=== PATIENT | female | born 2000 | race Caucasian/White ===

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

== ENCOUNTER 2021-05-02 07:24 | Outpatient (CLI) ==
[~2021-05-02] VITALS: Ht 170.2 cm; Wt 86.5 kg
[~2021-05-02 07:24] MED LIST: PRENTAB9 PO
[2021-05-02 07:49] VITALS: BP 99/62
[2021-05-02] MEDS ORDERED: HOME MED LIST COMPLETE! XX SCH (07:50)
== END 2021-05-02 09:05 | disposition home or self-care (01) ==
LOC: M LDO 07:24
PROVIDERS: ATTEND Registered Nurse
DX: O36.8120 Decreased fetal movements, second trimester, not applicable or unspecified (principal); Z3A.27 27 weeks gestation of pregnancy; O47.02 False labor before 37 completed weeks of gestation, second trimester
CPT/HCPCS: 59025; G0378; G0463

== ENCOUNTER 2021-08-05 05:33 | Inpatient (IN) | payer OTHER ==
[~2021-08-05] VITALS: Ht 170.2 cm; Wt 98.6 kg
[2021-08-05] VITALS (8 sets, daily range): BP systolic 118–147; BP diastolic 58–93
[2021-08-05] MEDS ORDERED: HOME MED LIST COMPLETE! XX SCH (06:15)
[2021-08-05] MEDS ORDERED: LACTATED RINGER'S 1000 ML IV STA (06:28)
[2021-08-05] MEDS ORDERED: PENICILLIN G POTASSIUM IV 5 MU in D5W MINI-BAG PLUS 100 ML IV STA (06:28)
[2021-08-05] MEDS ORDERED: LR 1,000 ML IV SCH ×2 (06:30→08:55)
[2021-08-05] MEDS ORDERED: LIDOCAINE 1% MDV 20ML VIAL INFIL PRN (06:30)
[2021-08-05] MEDS ORDERED: OXYTOCIN INJ 10 UNITS/ML VIAL (J2590) IV PRN (06:30)
[2021-08-05] MEDS ORDERED: TRANEXAMIC ACID INJection 1,000 MG in NS 100 ML IV PRN (06:30)
[2021-08-05] MEDS ORDERED: OXYTOCIN DRIP 30 UNITS in IV 1 EA IV PRN ×4 (06:30)
[2021-08-05] MEDS ORDERED: METHYLERGONOVINE MALEATE 0.2 MG/ML VIAL (J2210) IM PRN (06:30)
[2021-08-05] MEDS ORDERED: CARBOPROST TROMETHAMINE 250 MCG/ML AMP IM PRN (06:30)
[2021-08-05 06:50] LABS: HEMATOCRIT 35.6 % (36.0-47.0); HEMOGLOBIN 12.2 g/dl (12.0-15.5); MEAN CORPUSCULAR HEMOGLOBIN 31.1 pg (27.0-33.0); MEAN CORPUSCULAR HGB CONC 34.3 g/dl (32.0-36.5); MEAN CORPUSCULAR VOLUME 90.8 fl (80.0-96.0); PLATELET COUNT, AUTOMATED 213 10^3/uL (150-450); RED BLOOD COUNT 3.92 10^6/uL (4.00-5.40); WHITE BLOOD COUNT 15.2 10^3/uL (4.0-10.0)
[2021-08-05] MEDS ORDERED: PROMETHAZINE 25MG/ML 1ML VIAL IV ONE ×2 (07:00→10:45)
[2021-08-05] MEDS ORDERED: BUTORPHANOL 2 MG/ML INJ (J0595) IV ONE ×2 (07:00→10:45)
[2021-08-05] MEDS ORDERED: OXYTOCIN DRIP 30 UNITS in IV 1 EA IV SCH (08:55)
[2021-08-05] MEDS ORDERED: FENTANYL 2MCG/ML ROPIVACAINE 0.2% IN 0.9% NACL 100ML IVBAG As Ordered ONE (11:45)
[2021-08-05] MEDS: PENICILLIN G POTASSIUM IV 2.5 MU in IV 1 EA IV SCH ×3 (11:50→20:37)
[2021-08-05] MEDS ORDERED: EPIDURAL/PCA KEYS XX PRN (13:20)
[2021-08-05] MEDS ORDERED: ONDANSETRON 4MG/2ML VIAL IV PRN (13:20)
[2021-08-05] MEDS ORDERED: LR 500 ML IV PRN (13:20)
[2021-08-05] MEDS ORDERED: FENTANYL/ROPIVACAINE/NACL BAG 100 ML EPIDURAL SCH (13:20)
[2021-08-05] MEDS ORDERED: ePHEDrine SULFATE 25 MG/5 ML(5MG/ML) SYRINGE IVP PRN (13:20)
[2021-08-05] MEDS ORDERED: diphenhydrAMINE 50MG/ML VIAL (J1200) IV PRN (13:20)
[2021-08-05] MEDS ORDERED: NALOXONE INJ 0.4MG/1ML VIAL (J2310 PER 1MG) IV PRN (13:20)
[2021-08-05 22:01] LABS: CORD GAS ABE A -11.7; CORD GAS HCO3 A 17.7 MEQ/L; CORD GAS O2 SAT A 51.9 %; CORD GAS PCO2 A 52.4 mmHg; CORD GAS PH A 7.146 UNITS; CORD GAS PO2 A 24.8 mmHg; CORD GAS SBC A 14.6 MEQ/L; CORD GAS TCO2 A 19.3 MEQ/L
[2021-08-05 22:04] LABS: CORD GAS ABE V -8.6; CORD GAS HCO3 V 17.8 MEQ/L; CORD GAS O2 SAT V 58.1 %; CORD GAS PCO2 V 40.1 mmHg; CORD GAS PH V 7.265 UNITS; CORD GAS PO2 V 23.6 mmHg; CORD GAS SBC V 16.8 MEQ/L
[2021-08-05] MEDS ORDERED: MOM 30ML SUSPENSION UDC PO PRN (22:25)
[2021-08-05] MEDS ORDERED: ACETAMINOPHEN 500 MG TAB PO PRN (22:25)
[2021-08-05] MEDS ORDERED: IBUPROFEN 800 MG TAB PO PRN (22:25)
[2021-08-05] MEDS ORDERED: ANUSOL HC CREAM 30GM TOP PRN (22:25)
[2021-08-05] MEDS ORDERED: RHOGAM 300 MCG (1500 IU) INJ (J2790) IM SCH (22:25)
[2021-08-05] MEDS ORDERED: DOCUSATE SODIUM 100MG CAPSULE PO PRN (22:25)
[2021-08-05] MEDS ORDERED: DIBUCAINE 1% OINTMENT 30GM TOP PRN (22:25)
[2021-08-06 00:17] VITALS: BP 116/57
[2021-08-06 05:55] VITALS: BP 105/51
[2021-08-06] MEDS: PRENATAL VITAMINS CHEWABLE TABLET PO SCH (08:05)
[2021-08-06] MEDS ORDERED: PRENATAL VITAMINS CHEWABLE TABLET PO SCH (09:00)
[2021-08-06 17:55] VITALS: BP 119/56
[2021-08-07 06:00] VITALS: BP 119/71
[2021-08-07] MEDS ORDERED: IBUP80TA PO (06:54)
[2021-08-07] MEDS ORDERED: PRENCHW PO (06:54)
[2021-08-07] MEDS ORDERED: COLA100C5 PO (06:54)
[2021-08-07] MEDS ORDERED: MEASLES,MUMPS,RUBELLA VACCINE INJ (MMR-II) (90707) SC.IMMUN ONE (09:00)
[2021-08-07] MEDS: PRENATAL VITAMINS CHEWABLE TABLET PO SCH (09:15)
== END 2021-08-07 11:30 | disposition home or self-care (01) | DRG 807 ==
LOC: M LDO 05:33 → M LDI 06:49 → M OBS 23:57
PROVIDERS: ADMIT Obstetrics & Gynecology; ATTEND Obstetrics & Gynecology
PROC: 10E0XZZ Delivery of Products of Conception, External Approach (ICD-10-PCS; principal; 2021-08-05)
PROC: 0KQM0ZZ Repair Perineum Muscle, Open Approach (ICD-10-PCS; 2021-08-05)
PROC: 0UQMXZZ Repair Vulva, External Approach (ICD-10-PCS; 2021-08-05)
DX: O42.02 Full-term premature rupture of membranes, onset of labor within 24 hours of rupture (principal); Z37.0 Single live birth; Z3A.40 40 weeks gestation of pregnancy; O99.824 Streptococcus B carrier state complicating childbirth; O69.82X0 Labor and delivery complicated by other cord entanglement, without compression, not applicable or unspecified; O70.1 Second degree perineal laceration during delivery; O71.82 Other specified trauma to perineum and vulva; O32.6XX0 Maternal care for compound presentation, not applicable or unspecified; O69.81X0 Labor and delivery complicated by cord around neck, without compression, not applicable or unspecified

== ENCOUNTER → 2022-08-16 | Outpatient (CLI) | payer OTHER ==
[~2022-08-16] MED LIST changes: +COLA100C5 PO; +IBUP80TA PO; +PRENCHW PO
== END ==
LOC: M RAD 14:16
PROVIDERS: ATTEND Physician Assistant
DX: S89.92XA Unspecified injury of left lower leg, initial encounter (principal); X58.XXXA Exposure to other specified factors, initial encounter; Y92.9 Unspecified place or not applicable; Y93.9 Activity, unspecified; Y99.9 Unspecified external cause status

== ENCOUNTER 2022-09-14 15:49 | Emergency (ER) | payer OTHER ==
[~2022-09-14] VITALS: Ht 170.2 cm; Wt 89.5 kg
[2022-09-14 17:14] LABS: BASO # 0.1 10^3/uL (0.0-0.2); BASO % 0.4 % (0.0-1.0); EOS # 0.3 10^3/uL (0.0-0.5); EOS % 2.4 % (0.0-3.0); HEMATOCRIT 41.7 % (36.0-47.0); HEMOGLOBIN 13.7 g/dl (12.0-15.5); LYMPH # 3.3 10^3/uL (1.5-5.0); LYMPH % 26.6 % (24.0-44.0); MEAN CORPUSCULAR HEMOGLOBIN 28.6 pg (27.0-33.0); MEAN CORPUSCULAR HGB CONC 32.9 g/dl (32.0-36.5); MEAN CORPUSCULAR VOLUME 87.1 fl (80.0-96.0); MONO % 8.4 % (2.0-8.0); NEUTROPHILS # 7.6 10^3/uL (1.5-8.5); PLATELET COUNT, AUTOMATED 283 10^3/uL (150-450); RED BLOOD COUNT 4.79 10^6/uL (4.00-5.40); WHITE BLOOD COUNT 12.3 10^3/uL (4.0-10.0)
[2022-09-14 17:37] LABS: HCG, SERUM QUANTITATIVE 8.8 MIU/ML (<4.2)
[2022-09-14 17:38] LABS: BLOOD UREA NITROGEN 17 MG/DL (9-23); CALCIUM LEVEL 9.3 MG/DL (8.5-10.1); CARBON DIOXIDE LEVEL 24 MMOL/L (20-31); CHLORIDE LEVEL 107 MMOL/L (98-107); CREATININE FOR GFR 0.62 MG/DL (0.55-1.30); GLOMERULAR FILTRATION RATE > 60.0 (>60); GLUCOSE, FASTING 85 MG/DL (60-100); SODIUM LEVEL 141 MMOL/L (136-145)
[2022-09-14] MEDS ORDERED: MACR100C43 PO (19:38)
[2022-09-14 19:48] VITALS: BP 140/58; TEMP 98.7; O2SAT 98
== END 2022-09-14 19:56 | disposition home or self-care (01) ==
LOC: M ED 15:49
DX: O20.0 Threatened abortion (principal); O23.41 Unspecified infection of urinary tract in pregnancy, first trimester; Z3A.01 Less than 8 weeks gestation of pregnancy; Z91.030 Bee allergy status; Z79.899 Other long term (current) drug therapy

== ENCOUNTER 2022-09-15 12:29 | Emergency (ER) | payer OTHER ==
[~2022-09-15] VITALS: Ht 170.2 cm; Wt 88.2 kg
[~2022-09-15 12:29] MED LIST changes: +MACR100C43 PO
[2022-09-15 14:49] LABS: BASO # 0.1 10^3/uL (0.0-0.2); BASO % 0.4 % (0.0-1.0); EOS # 0.3 10^3/uL (0.0-0.5); EOS % 2.1 % (0.0-3.0); HEMATOCRIT 39.4 % (36.0-47.0); HEMOGLOBIN 13.1 g/dl (12.0-15.5); LYMPH # 3.5 10^3/uL (1.5-5.0); LYMPH % 26.5 % (24.0-44.0); MEAN CORPUSCULAR HEMOGLOBIN 28.8 pg (27.0-33.0); MEAN CORPUSCULAR HGB CONC 33.2 g/dl (32.0-36.5); MEAN CORPUSCULAR VOLUME 86.6 fl (80.0-96.0); MONO # 0.9 10^3/uL (0.0-0.8); MONO % 6.7 % (2.0-8.0); NEUTROPHILS # 8.4 10^3/uL (1.5-8.5); PLATELET COUNT, AUTOMATED 266 10^3/uL (150-450); RED BLOOD COUNT 4.55 10^6/uL (4.00-5.40); WHITE BLOOD COUNT 13.1 10^3/uL (4.0-10.0)
[2022-09-15 15:21] LABS: HCG, SERUM QUANTITATIVE 8.8 MIU/ML (<4.2)
[2022-09-15 15:22] LABS: BLOOD UREA NITROGEN 14 MG/DL (9-23); CALCIUM LEVEL 8.9 MG/DL (8.5-10.1); CARBON DIOXIDE LEVEL 25 MMOL/L (20-31); CHLORIDE LEVEL 106 MMOL/L (98-107); CREATININE FOR GFR 0.61 MG/DL (0.55-1.30); GLOMERULAR FILTRATION RATE > 60.0 (>60); GLUCOSE, FASTING 91 MG/DL (60-100); POTASSIUM SERUM 4.8 MMOL/L (3.5-5.1); SODIUM LEVEL 140 MMOL/L (136-145)
[2022-09-15 16:34] VITALS: BP 105/58; TEMP 97.9; O2SAT 99
== END 2022-09-15 16:51 | disposition home or self-care (01) ==
LOC: M ED 12:29
DX: O03.4 Incomplete spontaneous abortion without complication (principal); Z91.030 Bee allergy status; Z3A.01 Less than 8 weeks gestation of pregnancy; Z79.899 Other long term (current) drug therapy

== ENCOUNTER → 2022-09-17 | Outpatient (CLI) | payer OTHER | LOC: M ED 10:17 | PROVIDERS: ATTEND Emergency Medicine | DX: O03.9 Complete or unspecified spontaneous abortion without complication (principal) ==

== ENCOUNTER 2023-05-12 10:52 | Emergency (ER) | payer OTHER ==
[~2023-05-12] VITALS: Ht 170.2 cm; Wt 98.1 kg
[2023-05-12] MEDS ORDERED: METR-265 PO (14:56)
[2023-05-12 15:04] VITALS: BP 130/71; TEMP 98.6; O2SAT 98
[2023-05-12 17:34] LABS: GC DNA AMPLIFICATION NEGATIVE (NEGATIVE)
== END 2023-05-12 15:05 | disposition home or self-care (01) ==
LOC: M ED 10:52
DX: N76.0 Acute vaginitis (principal); Z91.030 Bee allergy status; Z79.899 Other long term (current) drug therapy

== ENCOUNTER 2023-06-17 17:45 | Emergency (ER) | payer OTHER ==
[~2023-06-17] VITALS: Ht 170.2 cm; Wt 91.0 kg
[~2023-06-17 17:45] MED LIST changes: +METR-265 PO
[2023-06-17 17:46] VITALS: TEMP 99.6
[2023-06-17 18:47] LABS: BASO # 0.1 10^3/uL (0.0-0.2); BASO % 0.3 % (0.0-1.0); EOS # 0.2 10^3/uL (0.0-0.5); HEMATOCRIT 37.4 % (36.0-47.0); HEMOGLOBIN 12.6 g/dl (12.0-15.5); LYMPH # 3.8 10^3/uL (1.5-5.0); LYMPH % 21.6 % (24.0-44.0); MEAN CORPUSCULAR HEMOGLOBIN 28.9 pg (27.0-33.0); MEAN CORPUSCULAR HGB CONC 33.7 g/dl (32.0-36.5); MEAN CORPUSCULAR VOLUME 85.8 fl (80.0-96.0); MONO # 1.6 10^3/uL (0.0-0.8); MONO % 9.1 % (2.0-8.0); NEUTROPHILS # 11.9 10^3/uL (1.5-8.5); NEUTROPHILS % 67.6 % (36.0-66.0); PLATELET COUNT, AUTOMATED 285 10^3/uL (150-450); RED BLOOD COUNT 4.36 10^6/uL (4.00-5.40); WHITE BLOOD COUNT 17.6 10^3/uL (4.0-10.0)
[2023-06-17 19:09] LABS: LIPASE 35 U/L (12-53)
[2023-06-17 19:11] LABS: HCG, SERUM QUALITATIVE NEGATIVE (NEGATIVE)
[2023-06-17 19:12] LABS: ALBUMIN 3.6 G/DL (3.2-5.2); ALKALINE PHOSPHATASE 138 U/L (46-116); ALT/SGPT 50 U/L (7.0-40); AST/SGOT 33 U/L (<34); BILIRUBIN,DIRECT 0.1 MG/DL (<0.4); BILIRUBIN,TOTAL 0.3 MG/DL (0.3-1.2); BLOOD UREA NITROGEN 20 MG/DL (9-23); CARBON DIOXIDE LEVEL 27 MMOL/L (20-31); CHLORIDE LEVEL 103 MMOL/L (98-107); CREATININE FOR GFR 0.79 MG/DL (0.55-1.30); GLOMERULAR FILTRATION RATE > 60.0 (>60); GLUCOSE, FASTING 86 MG/DL (60-100); POTASSIUM SERUM 3.7 MMOL/L (3.5-5.1); SODIUM LEVEL 139 MMOL/L (136-145); TOTAL PROTEIN 6.9 G/DL (5.7-8.2)
[2023-06-17] MEDS ORDERED: ISOVUE-370 76% 100ML VIAL As Ordered ONE (20:23)
[2023-06-17 21:23] LABS: Trichomonas vaginalis (AMP) NOT DETECTED (NEGATIVE)
[2023-06-17 21:47] LABS: GC DNA AMPLIFICATION NEGATIVE (NEGATIVE)
[2023-06-17 23:04] VITALS: BP 114/68; O2SAT 100
[2023-06-17] MEDS: BACTRIM 160MG/800MG DS TAB PO ONE (23:10)
[2023-06-20] MEDS ORDERED: SULF1TAB23 PO (07:37)
== END 2023-06-17 23:17 | disposition home or self-care (01) ==
LOC: M ED 17:45
DX: N30.01 Acute cystitis with hematuria (principal); Z91.030 Bee allergy status
CPT/HCPCS: 36415; 74177; 80048; 80076; 81001; 83690; 84703; 85025; 87088; 87186; 87661; 87810; 87850; 99284; Q9967

== ENCOUNTER 2023-08-11 12:29 | Emergency (ER) | payer OTHER ==
[~2023-08-11] VITALS: Ht 170.2 cm; Wt 93.0 kg
[~2023-08-11 12:29] MED LIST changes: +SULF1TAB23 PO
[2023-08-11 14:31] VITALS: BP 124/76; TEMP 98.5; O2SAT 100
[2023-08-11 15:03] LABS: HCG, SERUM QUALITATIVE POSITIVE (NEGATIVE)
== END 2023-08-11 15:12 | disposition home or self-care (01) ==
LOC: M ED 12:29
DX: Z32.01 Encounter for pregnancy test, result positive (principal); Z91.030 Bee allergy status; Z79.899 Other long term (current) drug therapy

== ENCOUNTER 2023-09-02 14:57 | Emergency (ER) | payer OTHER ==
[~2023-09-02] VITALS: Ht 170.2 cm; Wt 93.1 kg
[2023-09-02 16:43] LABS: Trichomonas vaginalis (AMP) NOT DETECTED (NEGATIVE)
[2023-09-02 17:07] LABS: GC DNA AMPLIFICATION NEGATIVE (NEGATIVE)
[2023-09-02] MEDS ORDERED: CEFD300C PO (17:09)
[2023-09-02 17:13] VITALS: BP 131/78; TEMP 99.4; O2SAT 99
== END 2023-09-02 17:16 | disposition home or self-care (01) ==
LOC: M ED 14:57
DX: O23.40 Unspecified infection of urinary tract in pregnancy, unspecified trimester (principal); Z3A.01 Less than 8 weeks gestation of pregnancy; Z91.030 Bee allergy status; Z79.2 Long term (current) use of antibiotics

== ENCOUNTER 2023-09-03 18:50 | Emergency (ER) | payer OTHER ==
[~2023-09-03] VITALS: Ht 170.2 cm; Wt 91.7 kg
[~2023-09-03 18:50] MED LIST changes: +CEFD300C PO
[2023-09-03 18:51] VITALS: BP 120/66; TEMP 97.9; O2SAT 100
== END 2023-09-03 22:40 | disposition left against medical advice (07) ==
LOC: M ED 18:50
DX: Z53.21 Procedure and treatment not carried out due to patient leaving prior to being seen by health care provider (principal)

== ENCOUNTER 2023-09-05 19:00 | Emergency (ER) | payer OTHER ==
[~2023-09-05] VITALS: Ht 170.2 cm; Wt 91.4 kg
[2023-09-05 21:44] VITALS: BP 111/57; TEMP 96.6; O2SAT 98
== END 2023-09-06 02:43 | disposition left against medical advice (07) ==
LOC: M ED 19:00
DX: Z53.21 Procedure and treatment not carried out due to patient leaving prior to being seen by health care provider (principal)

== ENCOUNTER 2023-10-20 13:49 | Emergency (ER) | payer OTHER ==
[~2023-10-20] VITALS: Ht 170.2 cm; Wt 93.3 kg
[2023-10-20 16:55] VITALS: BP 122/70; TEMP 97; O2SAT 96
== END 2023-10-20 16:56 | disposition home or self-care (01) ==
LOC: M ED 13:49
DX: O26.892 Other specified pregnancy related conditions, second trimester (principal); R10.2 Pelvic and perineal pain; Z3A.14 14 weeks gestation of pregnancy; V49.40XA Driver injured in collision with unspecified motor vehicles in traffic accident, initial encounter; Z91.030 Bee allergy status; Y92.410 Unspecified street and highway as the place of occurrence of the external cause; Y93.89 Activity, other specified; Y99.9 Unspecified external cause status